=== PATIENT | female | born 1985 | race Caucasian/White ===

== ENCOUNTER 2022-05-29 17:09 | Emergency (ER) | payer MEDICAID ==
[~2022-05-29] VITALS: Ht 162.6 cm; Wt 113.6 kg
[~2022-05-29 17:09] MED LIST: FERR324T11; PRENATAL VITAMINS TABLET
[2022-05-29 17:41] VITALS: BP 153/96
== END 2022-05-29 21:16 | disposition home or self-care (01) ==
LOC: ER 17:09
DX: S96.911A Strain of unspecified muscle and tendon at ankle and foot level, right foot, initial encounter (principal); X58.XXXA Exposure to other specified factors, initial encounter; Y93.89 Activity, other specified; Y92.89 Other specified places as the place of occurrence of the external cause; Y99.8 Other external cause status
CPT/HCPCS: 73630